=== PATIENT | male | born 1990 | race Caucasian/White ===

== ENCOUNTER → 2019-05-05 | Outpatient (CLI) | payer OTHER ==
--- NOTE | 2019-05-05 16:09 | REP ---
Three-phase bone scan of the legs: History: Left lower leg pain. Comparison left calf radiographs are from April 25, 2019. Technique: 21.0 mCi of technetium 99M MDP is injected and standard three-phase imaging of the calves is acquired. Findings: Anterior and posterior flow images are normal. Blood pool images show normal symmetric soft tissue uptake. Delayed scan images demonstrate mildly increased linear pattern of uptake in the posterior cortex and medial cortex of the proximal tibia bilaterally consistent with stress periostitis. The area of increased uptake is a little more elongate on the left and a little more focal on the right. No establish stress fracture is seen. Impression: Findings consistent with bilateral tibial stress periostitis. Electronically Signed by Jesus Rangel MD 05/05/2019 06:51 P
== END ==
LOC: M RAD 10:43
PROVIDERS: ATTEND Physician Assistant Surgical
DX: M79.662 Pain in left lower leg (principal)
CPT/HCPCS: 78315; A9503